=== PATIENT | female | born 1970 | race Caucasian/White ===

== ENCOUNTER → 2019-01-16 | Outpatient (CLI) | payer OTHER ==
--- NOTE | 2019-01-16 16:52 | RAD ---
Standing AP view of both knees, right knee 2 views. HISTORY: Right knee pain A standing view was taken of both knees. Joint space appears well maintained. There is no acute osseous abnormality in either knee. Lateral and sunrise views were taken of the right knee. There is no fracture or joint effusion or acute osseous abnormality. IMPRESSION: 1. Negative right knee. Electronically signed by: Rubens Serra MD (01/16/2019 4:49 PM) [facility]
--- NOTE | 2019-01-16 16:52 | RAD ---
Standing AP view of both knees, right knee 2 views. HISTORY: Right knee pain A standing view was taken of both knees. Joint space appears well maintained. There is no acute osseous abnormality in either knee. Lateral and sunrise views were taken of the right knee. There is no fracture or joint effusion or acute osseous abnormality. IMPRESSION: 1. Negative right knee. Electronically signed by: Rubens Serra MD (01/16/2019 4:49 PM) [facility]
== END | disposition home or self-care (01) ==
LOC: DXRAD 16:11
PROVIDERS: ATTEND Orthopaedic Surgery Sports Medicine
DX: M25.561 Pain in right knee (principal)
CPT/HCPCS: 73560; 73565